=== PATIENT | female | born 1990 | race Caucasian/White ===

== ENCOUNTER 2019-03-29 11:19 | Outpatient (CLI) | payer MEDICAID, SELFPAY ==
--- NOTE | 2019-03-29 11:30 | DI.US_ITS ---
EXAM: US OB 2-3 TRIMESTER CLINICAL HISTORY: late entry to care, ANATOMY, UNKNOWN DUE DATE, Z34.90 SUPERVISION NOR. TECHNIQUE: OB ultrasound was performed utilizing second-trimester protocol. COMPARISON: No exams were available for comparison FINDINGS: biometry is consistent with gestational age of 23 weeks and EDC of 07/26/2019. The stent is po sterior with no evidence of placenta previa. anomaly screen is within normal limits as per the attached checklist. Please note that the amniotic fluid index is 7 and there is visually mild oligo hydramnios. Note is also made that extremities were not well visualized. There is also a small pericardial effusion noted.
[2019-03-29 14:34] LABS: TSH (W/Ref FT4) 1.57 uIU/mL (0.36-3.74)
[2019-03-29 14:51] LABS: Abs Immature Grans 0.12 k/cumm (0.0-0.09); Absolute Basophil Count 0.03 k/cumm (0.0-0.2); Absolute Eosinophil Count 0.24 k/cumm (0.0-0.7); Absolute Monocyte Count 0.83 k/cumm (0.11-0.7); Absolute Neutrophil Count 11.05 k/cumm (1.2-6.7); Basophils % 0.2; Eosinophils % 1.6; HCT 35.2 % (36.0-46.0); HGB 11.8 g/dL (12.0-15.5); Immature Grans % 0.8; Lymphocytes % 18.6; Mean Corp. HGB Concentration 33.5 g/dL (32.0-36.0); Mean Corpuscular Hemoglobin 32.3 pg (27.0-33.0); Mean Corpuscular Volume 96.4 fL (80-95); Mean Platelet Volume 8.7 fL (8.0-11.0); Monocytes % 5.5; Neutrophils % 73.3; Platelet Count 533 x1000/uL (130-400); RBC 3.65 m/cumm (4.00-5.20); RBC Distribution Width 12.1 % (11.7-14.6); White Blood Cell Count 15.08 k/cumm (4.4-10.8)
[2019-03-30 11:04] LABS: Rubella IgG Ab (UVM) Positive; Varicella IgG Antibody Positive
[2019-03-30 11:34] LABS: Hepatitis B Surface Ag Negative (NEGAT); Hepatitis C Ab w Rflx HCV PCR Negative (NEGAT)
[2019-03-30 11:46] LABS: HIV-1/2 Ag & Ab Screen Negative (NEGAT)
[2019-03-30 16:51] LABS: Syphilis Total Ab w/Reflex Nonreactive (Nonreactive)
== END 2019-03-29 11:39 ==
PROVIDERS: Visit Provider Advanced Practice Midwife
DX: O41.02X0 Oligohydramnios, second trimester, not applicable or unspecified; Z3A.23 23 weeks gestation of pregnancy
CPT/HCPCS: 86787; 86803; 86850; 86900; 86901; 87340; 87389; 76805; 84443; 85025; 86762; 86780

== ENCOUNTER 2023-06-25 21:59 | Emergency (ER) | payer MEDICAID, SELFPAY ==
[2023-06-25 22:04] VITALS: BP 145/94; PULSE 111; RESP 16; TEMP 36.3; O2SAT 98
--- NOTE | 2023-06-25 22:22 | W.ED.GENAD ---
Discharge Plan Disposition Patient Disposition: Home Discharge Details Clinical Impression: Upper respiratory infection, Lymphadenopathy Primary Care Provider: None,None ED Provider: Destiney Armstrong Discharge Instructions Instructions: Lymphadenopathy (ED) Additional Instructions: Tylenol and ibuprofen over the counter for pain; follow the directions on the bottle. Call your primary care doctor to schedule an appointment for within one week to followup on your visit here. Return to the emergency department for new or worsening symptoms including difficulty breathing, difficulty swallowing, fever, or if you have any other concerns. Medical Decision Making 33yo F with poor dentition, hx of prior severe dental infections requiring hospitalization, presenting for two days of a mild right neck/jaw pain and swelling. No tooth, mouth, throat, or ear pain. Systemically well with no fevers. Slightly tachycardia in triage 110's after ambulating into ED, vital signs otherwise reassuring. Physical exam with tender lympadenapthy in the area she describes her symptoms, suspect 2/t to viral URI given associated cough/rhinnorhea. No mastoid tenderness to suggest mastoiditis. No indication of dental infection on oral exam though she does have poor dentition. Oropharynx normal, uvula midline. Would not swab for strep. Low suspicion for dental infection given lack of pain and reassuring exam. No difficulty swallowing, aside from lymph node neck non-tender. No respiratory distress. No indication for CT imaging, not concerning for deep space neck infection at this time. Given tylenol & toradol for discomfort. Repeat VS reassuring, HR normalized without further intervention. Discharged home; discharge instructions and return precautions were reviewed with patient who verbalized understanding. All questions were answered and they are in full agreement with the plan. HPI General Mode of arrival: ambulatory. Date/Time Provider Initiated Documentation: 06/25/23 22:02. Limitations to Documentation: no limitations. Information obtained by: patient. HPI Narrative: 33yo F with poor dentition, hx of prior severe dental infections requiring hospitalization, presenting for two days of a mild right neck/jaw pain and swelling. No pain in her teeth, mouth, or throat. No pain with swallowing. No ear pain, slight sense of fullness in her right ear. Over the past week has had a mild cough and some associated rhinnorhea. She is otherwise in her usual state of health with no fevers, chills, rash, nausea, vomiting, abdominal pain, chest pain, shortness of breath, or other concerns. Related Data Allergies Allergy/AdvReac Type Severity Reaction Status Date / Time No Known Allergies Allergy Verified 06/25/23 22:08 General Stated Complaint: DentalOral MARIA ELENA: 3 Review of Systems Narrative: see HPI PFSH All Active Problems (Updated 06/25/23 @ 22:37 by Destiney Armstrong MD) Lymphadenopathy (Acute) Upper respiratory infection (Acute) History of abnormal cervical Pap smear (Acute) LGSIL History of smoking (Acute) History of marijuana use (Acute) History of HPV infection (Acute) (Acute) History of inadequate care (Acute) Family History (Updated 04/18/19 @ 14:43 by Imelda Duenas CNM) Mother No problems noted. Social History Smoking/Tobacco Use Status: Current every day Tobacco Type: cigarettes Smoking risk assessment performed?: Yes Substance use type: does not use History History 3 Para 2 Hx # Term Pregnancies 2 Multiple births 0 Hx # Pregnancies 0 Ectopic pregnancies 0 AB induced 0 Hx Number of Living Children 2 AB spontaneous 0 Past Pregnancies Del. Date GA/Weeks # Preg Succ Route Wgt Sex Labor Lgth Anesthesia Location Prov Complic 05/14/11 37 No vaginal 2324.661 g Male 3 hrs At [facility] 06/01/16 39 No vaginal 2749.904 g Female IOL over 12 hrs IOL at [facility] (referred from [facility] for IUGR) Delivery Date: 05/14/11 Last Updated by: Amanda Yost good experience, unmedicated, was in shower most the time Delivery Date: 06/01/16 Last Updated by: Amanda Yost Traumatized by experience, very painful & feels IOL was unnecessary as the baby was over 6 lbs. Started IOL with pitocin, then a merrill bulb (pt states it was weighted) which came out at 6 cm, then epidural, AROM and delivery. No stitches. Exam Narrative Exam Narrative: General: Alert, well appearing, well nourished, in no acute distress. Head: Normocephalic, atraumatic Neck: Trachea midline, ?Neck supple. Tender anterior cervical lymphadenopathy on the right ENT: ?MMM.? No oropharygeal lesions or exudate. Uvula midline. Poor dentition, multiple missing teeth. No abscess noted. No gingival swelling or erythema. TM's clear. No mastoid tenderness. No bony tenderness to maxilla or madible. Cardiac: ?RRR, no murmurs appreciated Resp: No respiratory distress. CTAB.. Extremities: ?No deformities.? No peripheral edema. Neurologic: GCS 15. ? Moves all extremities freely against gravity Course Vital Signs Vital signs: Vital Signs Temperature 36.3 C L 06/25/23 22:04 Pulse 111 H 06/25/23 22:04 Respiratory Rate 16 06/25/23 22:04 Blood Pressure 145/94 H 06/25/23 22:04 Pulse Oximetry 98 06/25/23 22:04 Temperature 36.3 C L 06/25/23 22:04 Temperature Source Tympanic 06/25/23 22:04 Pulse 111 H 06/25/23 22:04 Respiratory Rate 16 06/25/23 22:04 Respiratory Effort Normal 06/25/23 22:09 Blood Pressure 145/94 H 06/25/23 22:04 Blood Pressure Position Sitting 06/25/23 22:04 Pulse Oximetry 98 06/25/23 22:04 Oxygen Delivery Method Room Air 06/25/23 22:04 Oxygen Flow Rate 0 06/25/23 22:04 Pain Level 1 06/25/23 22:04
[2023-06-25] MEDS: Acetaminophen 500 MG TAB 1000 MG PO (22:25)
[2023-06-25] MEDS: Ketorolac 15 MG/ML VIAL IM (22:25)
== END 2023-06-25 22:47 | disposition home or self-care (01) ==
PROVIDERS: Emergency Provider Student in an Organized Health Care Education/Training Program
DX: R59.1 Generalized enlarged lymph nodes (principal)
CPT/HCPCS: 99282; 99283; J1885